=== PATIENT | male | born 1990 | race African-American/Black ===

== ENCOUNTER 2019-10-01 17:47 | Emergency (ER) | payer OTHER ==
[2019-10-01 18:34] LABS: Absolute Lymphocytes (CBC) 1.4 K/uL (0.7-4.9); Basophils % 0.5 % (0-1.3); Hematocrit 39.5 % (39.6-49.0); Lymphocytes % 27.8 % (15.3-44.8); MPV 8.4 fL (7.6-11.3); RBC Red Blood Cell Count 5.76 M/uL (4.33-5.43)
[2019-10-01 18:38] LABS: Protime INR 1.09
[2019-10-01 18:42] LABS: Barbiturates NEGATIVE (NEGATIVE); Benzodiazepines NEGATIVE (NEGATIVE); Cocaine NEGATIVE (NEGATIVE); METHAMPHETAM NEGATIVE (NEGATIVE); Methadone NEGATIVE (NEGATIVE); Opiates NEGATIVE (NEGATIVE); Phencyclidine NEGATIVE (NEGATIVE); THC Cannibis NEGATIVE (NEGATIVE)
[2019-10-01 18:58] LABS: ALT/SGPT 30 U/L (12-78); AST/SGOT 40 U/L (15-37); Albumin 3.9 g/dL (3.4-5.0); Alkaline Phosphatase 96 U/L (45-117); BUN Blood Urea Nitrogen 21 mg/dL (7-18); Bicarbonate 31 mmol/L (21-32); Bilirubin Direct < 0.1 mg/dL (0-0.2); Bilirubin Total 0.2 mg/dL (0.2-1.0); Glucose Level 89 mg/dL (74-106); Potassium 4.1 mmol/L (3.5-5.1); Sodium Level 143 mmol/L (136-145)
[2019-10-01 19:01] LABS: Blood Morphology Comment NOTED (NOT SEEN); Hypochromasia 1+; Platelet Estimate ADEQ; Urine White Blood Cell Casts OK
[2019-10-01 19:10] LABS: Urine Blood NEGATIVE (NEG); Urine Glucose NEGATIVE (NEG); Urine Protein NEGATIVE (NEG); Urine Specific Gravity 1.025 (1.005-1.030)
[2019-10-01] MEDS ORDERED: NA CHLORIDE 0.9% 1,000 ML ONE (22:31)
--- NOTE | 2019-10-02 00:30 | EDPHYS ---
Physician Documentation [facility] Name: Alexus Sanchez Age: 29 yrs Sex: Male : 1990 Arrival Date: 10/01/2019 Time: 17:52 Bed 20 Private MD: ED Physician Dallin Duvall HPI: 10/01 19:05 This 29 yrs old Black Male presents to ER via Law Enforcement with complaints of kb Overdose. 19:05 The patient presents to the emergency department after a known overdose, that was kb intentional. Context: Method: the patient has a confirmed or suspected ingestion, lisinopril, Time: 3 hour(s) ago. Associated signs and symptoms: The patient has no apparent associated signs or symptoms. Severity of symptoms: At their worst the symptoms were mild in the emergency department the symptoms are unchanged. The patient has not experienced similar symptoms in the past. The patient has not recently seen a physician. Pt reports he took 30 lisinopril 20mg today because "I was trippin." States he is in a cell by himself and it makes him go crazy sometimes. Denies suicidal ideations. States he was not trying to harm himself. Was seen by intermediate psychiatrist prior to arrival and will be going to see her again when he gets back to [facility].. Historical: - Allergies: 17:55 Risperdal; ss - Home Meds: 17:55 lisinopril 20 mg Oral tab 1 tab once daily [Active]; Zoloft 100 mg Oral tab 1 tab once ss daily [Active]; - PMHx: 17:55 Depression; Hypertension; ss - PSHx: 17:55 L upper arm; ss - Immunization history:: Adult Immunizations up to date. - Social history:: Smoking status: Patient/guardian denies using tobacco. - Ebola Screening: : Patient denies exposure to infectious person Patient denies travel to an Ebola-affected area in the 21 days before illness onset. ROS: 19:02 Constitutional: Negative for fever, chills, and weight loss, ENT: Negative for injury, kb pain, and discharge, Neck: Negative for injury, pain, and swelling, Cardiovascular: Negative for chest pain, palpitations, and edema, Respiratory: Negative for shortness of breath, cough, wheezing, and pleuritic chest pain, Abdomen/GI: Negative for abdominal pain, nausea, vomiting, diarrhea, and constipation, Back: Negative for injury and pain, MS/Extremity: Negative for injury and deformity, Skin: Negative for injury, rash, and discoloration, Neuro: Negative for headache, weakness, numbness, tingling, and seizure. Exam: 19:02 Constitutional: This is a well developed, well nourished patient who is awake, alert, kb and in no acute distress. Head/Face: Normocephalic, atraumatic. Neck: Trachea midline, no thyromegaly or masses palpated, and no cervical lymphadenopathy. Supple, full range of motion without nuchal rigidity, or vertebral point tenderness. No Meningismus. Chest/axilla: Normal chest wall appearance and motion. Nontender with no deformity. No lesions are appreciated. Cardiovascular: Regular rate and rhythm with a normal S1 and S2. No gallops, murmurs, or rubs. Normal PMI, no JVD. No pulse deficits. Respiratory: Lungs have equal breath sounds bilaterally, clear to auscultation and percussion. No rales, rhonchi or wheezes noted. No increased work of breathing, no retractions or nasal flaring. Abdomen/GI: Soft, non-tender, with normal bowel sounds. No distension or tympany. No guarding or rebound. No evidence of tenderness throughout. Back: No spinal tenderness. No costovertebral tenderness. Full range of motion. Skin: Warm, dry with normal turgor. Normal color with no rashes, no lesions, and no evidence of cellulitis. MS/ Extremity: Pulses equal, no cyanosis. Neurovascular intact. Full, normal range of motion. Neuro: Awake and alert, GCS 15, oriented to person, place, time, and situation. Cranial nerves II-XII grossly intact. Motor strength 5/5 in all extremities. Sensory grossly intact. Cerebellar exam normal. Normal gait. Psych: Awake, alert, with orientation to person, place and time. Behavior, mood, and affect are within normal limits. Vital Signs: 17:55 BP 118 / 80; Pulse 70; Resp 15; Temp 98.0(TE); Pulse Ox 100% on R/A; Weight 75.3 kg; ss Height 5 ft. 8 in. (172.72 cm); Pain 0/10; 18:41 BP 111 / 62; Pulse 73; Resp 16 S; Pulse Ox 100% on R/A; ca1 19:45 BP 107 / 53; Pulse 66; Resp 18; Pulse Ox 98% on R/A; wh 20:30 BP 96 / 54; Pulse 66; Resp 18; Pulse Ox 98% on R/A; wh 21:45 BP 96 / 52; Pulse 96; Resp 18; Pulse Ox 99% on R/A; wh 22:45 BP 97 / 51; Pulse 81; Resp 18; Pulse Ox 97% on R/A; wh 23:30 BP 92 / 58; Pulse 60; Resp 16; Pulse Ox 99% ; wh 12 00:45 BP 95 / 56; Pulse 55; Resp 18; Pulse Ox 100% on R/A; wh 10/01 17:55 Body Mass Index 25.24 (75.30 kg, 172.72 cm) ss MDM: 10/01 18:07 Patient medically screened. kb 19:02 Data reviewed: vital signs, nurses notes. Data interpreted: Pulse oximetry: on room air kb is 100 %. Interpretation: normal. 19:02 ED course: Poison control recommended observation for 6-8 hours. . kb 21:24 ED course: Pt sleeping, easily awakened. No signs of distress. . kb 21:46 Transition of care: After a detail discussion of the patient's case, care is kb transferred to Merry Hickey [facility]. 10/01 18:07 Order name: Acetaminophen; Complete Time: 19:01 kb 10/01 18:07 Order name: Basic Metabolic Panel; Complete Time: 19:01 kb 10/01 18:07 Order name: CBC with Diff; Complete Time: 19:08 kb 10/01 18:07 Order name: ETOH Level; Complete Time: 19:08 kb 10/01 18:07 Order name: Hepatic Function; Complete Time: 19:01 kb 10/01 18:07 Order name: PT-INR; Complete Time: 18:45 kb 10/01 18:07 Order name: Ptt, Activated; Complete Time: 18:45 kb 10/01 18:07 Order name: Salicylate; Complete Time: 19:15 kb 10/01 18:07 Order name: Urine Drug Screen; Complete Time: 18:45 kb 10/01 18:07 Order name: EKG; Complete Time: 18:08 kb 10/01 18:07 Order name: EKG - Nurse/Tech; Complete Time: 18:40 kb 10/01 18:33 Order name: Urine Dipstick--Ancillary (enter results); Complete Time: 19:15 em1 10/01 19:03 Order name: CBC Smear Scan; Complete Time: 19:08 EDWI 10/01 18:07 Order name: IV Saline Lock; Complete Time: 18:23 kb 10/01 18:07 Order name: Labs collected and sent; Complete Time: 18:23 kb 10/01 18:07 Order name: Urine Dipstick-Ancillary (obtain specimen); Complete Time: 18:32 kb Administered Medications: 22:30 Drug: NS 0.9% 1000 ml Route: IV; Rate: 1 bolus; Site: right antecubital; 10/02 00:46 Follow up: Response: No adverse reaction; IV Status: Completed infusion Disposition: 10/02/19 00:29 Discharged to Home. Impression: Pt's intentional overdosing of medication regimen - lisinopril, nontoxic ingestion. - Condition is Stable. - Discharge Instructions: Hypotension, Nontoxic Ingestion, Persistent Depressive Disorder. - Medication Reconciliation Form, Thank You Letter, Antibiotic Education, Prescription Opioid Use form. - Follow up: Emergency Department; When: As needed; Reason: Worsening of condition. Follow up: Private Physician; When: 2 - 3 days; Reason: Recheck today's complaints, Continuance of care, Re-evaluation by your physician. Addendum: 10/05/2019 07:27 Co-signature as Attending Physician, Dallin Duvall MD. r n Signatures: Dispatcher [employer] [facility] Ana Maria Jones, INSPECTOR AUTOMATIC TYPEWRITER-C INSPECTOR AUTOMATIC TYPEWRITER-Ckb Merry Hickey, DAWSONC INSPECTOR AUTOMATIC TYPEWRITER-Csnw Dallin Duvall MD MD rn Smirch, Shelby, RN RN ss Habalo, Winsy Corrections: (The following items were deleted from the chart) 10/02 01:29 00:29 10/02/2019 00:29 Discharged to Home. Impression: Pt's intentional overdosing of medication regimen - lisinopril; nontoxic ingestion. Condition is Stable. Forms are Medication Reconciliation Form, Thank You Letter, Antibiotic Education, Prescription Opioid Use. Follow up: Emergency Department; When: As needed; Reason: Worsening of condition. Follow up: Private Physician; When: 2 - 3 days; Reason: Recheck today's complaints, Continuance of care, Re-evaluation by your physician. snw
--- NOTE | 2019-10-02 00:30 | ER ---
Nurse's Notes [facility] Name: Alexus Sanchez Age: 29 yrs Sex: Male : 1990 Arrival Date: 10/01/2019 Time: 17:52 Bed 20 Private MD: Diagnosis: Pt's intentional overdosing of medication regimen - lisinopril;nontoxic ingestion Presentation: 10/01 17:52 Presenting complaint: Patient states: "I took 30 Lisinopril tablets (20 mg) about an ss hour ago. I didn't do it to hurt myself, I just don't know why I did it, I'm about to get out and go home.". Transition of care: [facility]. Onset of symptoms was October 01, 2019. Risk Assessment: Do you want to hurt yourself or someone else? Patient reports no desire to harm self or others. Initial Sepsis Screen: Does the patient meet any 2 criteria? No. Patient's initial sepsis screen is negative. Does the patient have a suspected source of infection? No. Patient's initial sepsis screen is negative. Care prior to arrival: None. 17:52 Method Of Arrival: Law Enforcement: [place] [employer] 17:52 Acuity: MARTY 2 ss Historical: - Allergies: 17:55 Risperdal; ss - Home Meds: 17:55 lisinopril 20 mg Oral tab 1 tab once daily [Active]; Zoloft 100 mg Oral tab 1 tab once ss daily [Active]; - PMHx: 17:55 Depression; Hypertension; ss - PSHx: 17:55 L upper arm; ss - Immunization history:: Adult Immunizations up to date. - Social history:: Smoking status: Patient/guardian denies using tobacco. - Ebola Screening: : Patient denies exposure to infectious person Patient denies travel to an Ebola-affected area in the 21 days before illness onset. Screenin:08 Abuse screen: Denies threats or abuse. Denies injuries from another. Nutritional ca1 screening: No deficits noted. Tuberculosis screening: No symptoms or risk factors identified. Fall Risk None identified. Assessment: 18:03 Reassessment: Spoke with [facility] RepBrian who recommends to Not give ss charcoal at this time as ingestion has been greater than 1 hour. Monitor for hypotension, hypokalemia and/or bradycardia. Obtain Toxic workup, continuous cardiac monitoring. Monitor patient for at least 6-8 hours. If symptomatic, admit patient for further monitoring. Pt has no complaints at this time. Denies SI/HI. 18:08 General: Appears in no apparent distress. comfortable, Behavior is calm, cooperative, ca1 appropriate for age. Pain: Denies pain. Neuro: Level of Consciousness is awake, alert, obeys commands, Oriented to person, place, time, situation, Appropriate for age. Cardiovascular: Heart tones S1 S2 present Capillary refill < 3 seconds Patient's skin is warm and dry. Respiratory: Airway is patent Respiratory effort is even, unlabored, Respiratory pattern is regular, symmetrical, Breath sounds are clear bilaterally. GI: Abdomen is flat, non-distended, Bowel sounds present X 4 quads. Abd is soft and non tender X 4 quads. : No deficits noted. No signs and/or symptoms were reported regarding the genitourinary system. EENT: No deficits noted. No signs and/or symptoms were reported regarding the EENT system. Derm: Skin is intact, is healthy with good turgor, Skin is pink, warm \\T\\ dry. Musculoskeletal: Circulation, motion, and sensation intact. Capillary refill < 3 seconds, Range of motion: intact in all extremities. 18:11 Reassessment: COs at bedside. ca1 19:30 Reassessment: Patient appears in no apparent distress at this time. Patient and/or family updated on plan of care and expected duration. Pain level reassessed. Patient is alert, oriented x 3, equal unlabored respirations, skin warm/dry/pink. 20:35 Reassessment: Patient appears in no apparent distress at this time. No changes from previously documented assessment. Patient and/or family updated on plan of care and expected duration. Pain level reassessed. Patient is alert, oriented x 3, equal unlabored respirations, skin warm/dry/pink. Patient denies pain at this time. 21:47 Reassessment: Patient appears in no apparent distress at this time. No changes from previously documented assessment. Patient and/or family updated on plan of care and expected duration. Pain level reassessed. Patient is alert, oriented x 3, equal unlabored respirations, skin warm/dry/pink. Pt sleeping well no signs of distress noted Patient denies pain at this time. 22:40 Reassessment: Patient appears in no apparent distress at this time. No changes from previously documented assessment. Patient and/or family updated on plan of care and expected duration. Pain level reassessed. Patient is alert, oriented x 3, equal unlabored respirations, skin warm/dry/pink. TCF Chimmy Poison COntrol with suggestion of Iv fluids to keep BP WNL, notified Provider Patient denies pain at this time. 23:30 Reassessment: Patient appears in no apparent distress at this time. No changes from previously documented assessment. Patient and/or family updated on plan of care and expected duration. Pain level reassessed. Patient is alert, oriented x 3, equal unlabored respirations, skin warm/dry/pink. Pt sleeping well no signs of distress noted. 10/02 00:46 Reassessment: Patient appears in no apparent distress at this time. No changes from previously documented assessment. Patient and/or family updated on plan of care and expected duration. Pain level reassessed. Patient is alert, oriented x 3, equal unlabored respirations, skin warm/dry/pink. Patient denies pain at this time. Vital Signs: 10/01 17:55 BP 118 / 80; Pulse 70; Resp 15; Temp 98.0(TE); Pulse Ox 100% on R/A; Weight 75.3 kg; Height 5 ft. 8 in. (172.72 cm); Pain 0/10; 18:41 BP 111 / 62; Pulse 73; Resp 16 S; Pulse Ox 100% on R/A; ca1 19:45 BP 107 / 53; Pulse 66; Resp 18; Pulse Ox 98% on R/A; wh 20:30 BP 96 / 54; Pulse 66; Resp 18; Pulse Ox 98% on R/A; wh 21:45 BP 96 / 52; Pulse 96; Resp 18; Pulse Ox 99% on R/A; wh 22:45 BP 97 / 51; Pulse 81; Resp 18; Pulse Ox 97% on R/A; wh 23:30 BP 92 / 58; Pulse 60; Resp 16; Pulse Ox 99% ; wh 10/02 00:45 BP 95 / 56; Pulse 55; Resp 18; Pulse Ox 100% on R/A; 10/01 17:55 Body Mass Index 25.24 (75.30 kg, 172.72 cm) ED Course: 12 17:52 Patient arrived in ED. ss 17:54 Triage completed. ss 17:55 Arm band placed on right wrist. ss 18:06 Kitty Sanchez, RN is Primary Nurse. ca1 18:07 Ana Maria Jones FNP-C is PHCP. kb 18:07 Dallin Duvall MD is Attending Physician. kb 18:08 Patient has correct armband on for positive identification. Bed in low position. Call ca1 light in reach. Side rails up X 1. Pulse ox on. NIBP on. Warm blanket given. 18:08 No provider procedures requiring assistance completed. ca1 18:15 Initial lab(s) drawn, by pr, sent to lab. Urine collected: clean catch specimen, clear, ca1 Amount Voided: 90mL. Inserted saline lock: 18 gauge in right antecubital area, using aseptic technique. Blood collected. 21:38 PHCP role handed off by Ana Maria Jones FNP-C sn 21:38 Merry Hickey FNP-C is PHCP. [facility] 10/02 00:49 IV discontinued, intact, bleeding controlled, No redness/swelling at site. Administered Medications: 12 22:30 Drug: NS 0.9% 1000 ml Route: IV; Rate: 1 bolus; Site: right antecubital; 10/02 00:46 Follow up: Response: No adverse reaction; IV Status: Completed infusion Outcome: 00:29 Discharge ordered by . snw 00:49 Discharged to Law Enforcement 00:49 Condition: stable 00:49 Discharge instructions given to patient, police, Instructed on discharge instructions, follow up and referral plans. POC Demonstrated understanding of instructions, follow-up care, POC 01:29 Patient left the ED. Signatures: Ana Maria Jones FNP-C FNP-Ckb Merry Hickey FNP-C FNP-Csnw Alyse Tapia RN RN Mally Poon Kitty Sanchez RN RN ca1
[2019-10-02 03:29] VITALS: TEMP 98
[2019-10-02 03:39] VITALS: BP 95/56; O2SAT 100
--- NOTE | 2019-10-02 07:02 | EKG ---
Test Date: 2019-10-01 Test Time: 18:32:38 Coal Chute Worker: KAYLAH MEASUREMENT RESULTS: Intervals: Rate: 63 KS: 174 QRSD: 86 QT: 406 QTc: 415 Wray: P: 22 KS: 174 QRS: 66 T: 60 INTERPRETIVE STATEMENTS: Normal sinus rhythm Normal ECG No previous ECG available for comparison Electronically Signed On 10-02-19 07:01:23 PROCESS LABORATORY SPECIALIST by Glenn Martinez
== END 2019-10-02 01:29 | disposition home or self-care (01) ==
LOC: ER 17:47
DX: T46.4X2A Poisoning by angiotensin-converting-enzyme inhibitors, intentional self-harm, initial encounter (principal); Y92.143 Cell of prison as the place of occurrence of the external cause; I10 Essential (primary) hypertension; F32.9 Major depressive disorder, single episode, unspecified; Z88.8 Allergy status to other drugs, medicaments and biological substances
CPT/HCPCS: 36415; 80048; 80076; 80307; 80320; 80329; 81003; 85025; 85610; 85730; 93005; 96360; 96361; 99284; J7030

== ENCOUNTER 2020-01-25 17:17 | Emergency (ER) | payer OTHER ==
[2020-01-25 18:02] LABS: Absolute Lymphocytes (CBC) 1.2 K/uL (0.7-4.9); Basophils % 0.4 % (0-1.3); Hematocrit 40.5 % (39.6-49.0); Lymphocytes % 19.1 % (15.3-44.8); MPV 8.7 fL (7.6-11.3); RBC Red Blood Cell Count 5.89 M/uL (4.33-5.43)
[2020-01-25 18:09] LABS: Protime INR 1.08
[2020-01-25 18:15] LABS: Barbiturates NEGATIVE (NEGATIVE); Benzodiazepines NEGATIVE (NEGATIVE); Cocaine NEGATIVE (NEGATIVE); METHAMPHETAM NEGATIVE (NEGATIVE); Methadone NEGATIVE (NEGATIVE); Opiates NEGATIVE (NEGATIVE); Phencyclidine NEGATIVE (NEGATIVE); THC Cannibis NEGATIVE (NEGATIVE)
[2020-01-25 18:30] LABS: ALT/SGPT 18 U/L (12-78); AST/SGOT 18 U/L (15-37); Albumin 4.1 g/dL (3.4-5.0); Alkaline Phosphatase 73 U/L (45-117); BUN Blood Urea Nitrogen 17 mg/dL (7-18); Bicarbonate 29 mmol/L (21-32); Bilirubin Direct < 0.1 mg/dL (0-0.2); Bilirubin Total 0.2 mg/dL (0.2-1.0); Glucose Level 91 mg/dL (74-106); Potassium 4.6 mmol/L (3.5-5.1); Protein, Total 7.2 g/dL (6.4-8.2); Sodium Level 142 mmol/L (136-145)
[2020-01-25 19:20] LABS: Urine Blood NEGATIVE (NEG); Urine Glucose NEGATIVE (NEG); Urine Protein NEGATIVE (NEG); Urine Specific Gravity >1.030 (1.005-1.030)
[2020-01-25 19:23] LABS: Anisocytosis 1+; Blood Morphology Comment NOTED (NOT SEEN); Platelet Estimate ADEQ; Poikilocytosis 2+; Urine White Blood Cell Casts OK
--- NOTE | 2020-01-25 20:52 | ER ---
Nurse's Notes [facility] Name: Alexus Sanchez Age: 29 yrs Sex: Male : 1990 Arrival Date: 01/25/2020 Time: 17:19 Bed 3 Private MD: Diagnosis: Poisoning by other drugs, medicaments and biological substances, intentional self-harm Presentation: 01/24 17:19 Chief complaint: EMS states: pt took 25 pills of Lisinopril 20 mg tabs at 1530, sv unwitnessed with the intent to kill himself. Pt was attempting to hang himself but the halfway guards pepper sprayed himself before he could even wrap anything around himself. BP 109/73 SR 20G R AC. Pt denies SOB/dizziness/fever/chills. Poison control was called by EMS. Pt from [facility]. Coronavirus screen: Patient denies fever greater than 100.4F, cough, shortness of breath, or difficulty breathing. Proceed with normal triage process. Ebola Screen: Patient negative for fever greater than or equal to 101.5 degrees Fahrenheit, and additional compatible Ebola Virus Disease symptoms Patient denies exposure to infectious person. Patient denies travel to an Ebola-affected area in the 21 days before illness onset. No symptoms or risks identified at this time. Initial Sepsis Screen: Does the patient meet any 2 criteria? No. Patient's initial sepsis screen is negative. Does the patient have a suspected source of infection? No. Patient's initial sepsis screen is negative. Risk Assessment: Do you want to hurt yourself or someone else? Patient reports desire/thoughts of hurting themselves or someone else. Provider notified. 17:19 Method Of Arrival: EMS: [facility] sv 17:19 Acuity: MARTY 2 sv 17:31 Onset of symptoms was January 25, 2020 at 15:30. sv Triage Assessment: 17:20 General: Appears in no apparent distress. comfortable, well groomed, well developed, sv Behavior is calm, cooperative, appropriate for age, Pt telling jokes to staff.. Pain: Denies pain. Neuro: Level of Consciousness is awake, alert, obeys commands, Oriented to person, place, time, situation, Moves all extremities. Full function. Cardiovascular: Patient's skin is warm and dry. Rhythm is sinus rhythm. Respiratory: Airway is patent Respiratory effort is even, unlabored, Respiratory pattern is regular, symmetrical. Derm: Skin is intact, Skin is pink, warm \T\ dry. Musculoskeletal: Range of motion: intact in all extremities. Historical: - Allergies: 17:25 Risperdal; sv - Home Meds: 17:25 lisinopril 20 mg Oral tab 1 tab once daily [Active]; aripiprazole 15 mg oral tab 1 tab sv once daily [Active]; - PMHx: 17:25 Depression; Hypertension; sv - PSHx: 17:25 L upper arm; sv - Immunization history:: Adult Immunizations up to date. - Social history:: Smoking status: Patient denies any tobacco usage or history of. Patient/guardian denies using alcohol, street drugs, Patient/guardian denies using The patient lives with family. - Family history:: not pertinent. Screenin:30 Abuse screen: Denies threats or abuse. Denies injuries from another. Nutritional sv screening: No deficits noted. Tuberculosis screening: No symptoms or risk factors identified. Fall Risk None identified. Assessment: 17:46 Reassessment: Poison control called by myself. Case # [id number]. Stated to watch for sv hypotension. 18:02 Reassessment: Patient appears in no apparent distress at this time. No changes from sv previously documented assessment. Patient and/or family updated on plan of care and expected duration. Pain level reassessed. Patient is alert, oriented x 3, equal unlabored respirations, skin warm/dry/pink. 18:29 Reassessment: Patient appears in no apparent distress at this time. No changes from sv previously documented assessment. Patient and/or family updated on plan of care and expected duration. Pain level reassessed. Patient is alert, oriented x 3, equal unlabored respirations, skin warm/dry/pink. Pt talking and joking with the halfway guards. 19:16 Reassessment: PATIENT AT THIS TIME DENIES PAIN, NO SIGNS OF DISTRESS AT THIS TIME, lw1 LAUGHING AND JOKING WITH GUARDS, BEHAVIOR IS APPROPRIATE. 19:33 Reassessment: CALLED POISON CONTROL FOR UPDATE ROCKET MOTOR TESTER ADVISED TO WATCH PATIENT lw1 FOR 6 HOURS FROM INGESTION, IF EVERYTHING IS STABLE MAY DISCHARGE BACK UNIT AND HAVE PSYCH CONSULT. MD UPDATED. 19:48 Reassessment: PATIENT WAS GIVEN SANDWICH AND JUICE. PATIENT DENIES PAIN OR DISCOMFORT, lw1 NO SIGNS OF DISTRESS NOTED. GUARDS X 2 AT BEDSIDE. 20:13 Reassessment:. lw1 21:27 Reassessment: WAITING FOR TRANSPORTATION FOR PATIENT. lw1 Psych: 17:27 Subjective: Patient's mood is elevated, Delusions are denied, Hallucinations are denied sv Having thoughts of suicide. Plan for suicide is to take the pills he's been saving of Lisinopril. Objective: Patient is cooperative, Speech is normal, Affect is appropriate. Interventions: Removed personal items and placed in bag. Searched person for dangerous items. Patient reassessed during use of restraints. Patient is physically safe. Patient's cardiac status is stable. Patient's respirations are even and unlabored. Patient has good circulation in all extremities as indicated by capillary refill < 3 seconds. Patient's ROM assessed and is intact. Patient nutrition and hydration needs will continue to be monitored and addressed. Patient hygiene and elimination needs met. Patient assessed for signs of distress. Patient remains reasonably comfortable at this time. Suicide Risk Assessment: Sad Person Scale: Sex of patient: Male: Score 1 point. Age of patient: Score 1 point if patient 15-34. Depression: Score 1 point if signs of depression are present. Previous Attempt: Score 1 point if patient has previously attempted suicide. Substance Abuse: Score 0 point if patient does not abuse alcohol or drugs. Rational Thinking: Score 0 point if patient has rational thinking. Social Support: Score 1 point if social support is lacking and/or unavailable. Organized Plan: Score 1 point if patient had a plan in place. Relationship: Score 1 point if patient is , , , or for a single male Chronic Sickness: Score 1 point if patient has illness, chronic, debilitating, or severe. TOTAL POINTS: If total points are 7-10, the proposed clinical action is to hospitalize or commit. Implement suicide precautions. Safety Checks: Personal items have been removed. Door is open. Visitors are present. 2 halfway guards at bedside. Pt denies substance abuse. 21:24 Commitment: WILL FOLLOW UP WITH PSYCH AT [facility]. lw1 Overdose: 17:26 Patient took Lisinopril 20 mg, 25 tabs. Overdose occurred 1-2 hours ago. sv Vital Signs: 17:19 BP 106 / 77; Pulse 64; Resp 13; Temp 98.5; Pulse Ox 100% ; Weight 73.94 kg; Height 5 sv ft. 8 in. (172.72 cm); Pain 0/10; 17:48 BP 111 / 99; Pulse 82; Resp 16; Pulse Ox 100% ; sv 18:15 BP 102 / 66; Pulse 63; Resp 17; Pulse Ox 100% ; sv 18:45 BP 111 / 83; Pulse 73; Resp 15; Pulse Ox 100% ; sv 19:06 BP 112 / 66; Pulse 62; Resp 16; Pulse Ox 100% on R/A; lw1 19:33 BP 123 / 69; Pulse 71; Resp 15; Pulse Ox 100% on R/A; lw1 20:00 BP 122 / 92; Pulse 76; Resp 19; Pulse Ox 100% on R/A; lw1 20:11 BP 117 / 77; Pulse 73; Resp 16; Pulse Ox 97% on R/A; lw1 20:30 BP 136 / 77; Pulse 68; Resp 16; Pulse Ox 99% on R/A; Pain 0/10; lw1 21:00 BP 125 / 84; Pulse 79; Resp 20; Pulse Ox 100% on NC; Pain 0/10; lw1 17:19 Body Mass Index 24.78 (73.94 kg, 172.72 cm) sv ED Course: 17:19 Patient arrived in ED. sv 17:19 Nichelle Jonas, NITZA is Primary Nurse. sv 17:19 Aurelia Elizabeth MD is Attending Physician. ma2 17:20 proposal analyst on. Pulse ox on. NIBP on. sv 17:20 Maintain EMS IV. Dressing intact. Site clean \T\ dry. Gauge \T\ site: 20G R AC. sv 17:24 Triage completed. sv 17:25 Arm band placed on Patient placed in an exam room, on a stretcher, on two way radio technician, sv on pulse oximetry. 17:30 Patient has correct armband on for positive identification. Bed in low position. Call sv light in reach. Side rails up X2. 2 halfway guards at the bedside. 17:45 Initial lab(s) drawn, by me, by EMS personnel. Inserted saline lock: 20 gauge in left ca1 antecubital area, using aseptic technique. Blood collected. 17:47 EKG done, by ED staff, reviewed by Aurelia Elizabeth MD. sv 17:48 Acetaminophen Sent. sv 17:48 Basic Metabolic Panel Sent. sv 18:01 Urine Dipstick--Ancillary (enter results) Sent. sv 18:06 CBC Smear Scan Sent. sv 18:29 Awaiting lab results. sv 18:56 Primary Nurse role handed off by Nichelle Jonas, NITZA 19:16 Norma Ta, RN is Primary Nurse. lw1 21:24 No provider procedures requiring assistance completed. IV discontinued, intact, lw1 bleeding controlled, No redness/swelling at site. Pressure dressing applied, X 2. Administered Medications: No medications were administered Outcome: 20:51 Discharge ordered by . zakia 21:25 Discharged to Law Enforcement lw1 21:25 Condition: stable 21:25 Discharge instructions given to patient, Instructed on discharge instructions, follow up and referral plans. Demonstrated understanding of instructions, follow-up care. 21:54 Patient left the ED. mw2 Signatures: Nichelle Jonas RN RN sv Alzahri, Mohammad, MD MD sc2 Bunny Peter mw2 Kitty Sanchez RN RN [facility] Norma Ta RN RN lw1 Corrections: (The following items were deleted from the chart) 17:26 17:19 Chief complaint: EMS states: pt took 25 pills of Lisinopril 20 mg tabs at 1530, sv unwitnessed with the intent to kill himself. Pt was attempting to hang himself but the halfway guards pepper sprayed himself before he could even wrap anything around himself. BP 109/73 SR 20G R AC. Pt denies SOB/dizziness/fever/chills. sv 17:31 17:19 Chief complaint: EMS states: pt took 25 pills of Lisinopril 20 mg tabs at 1530, sv unwitnessed with the intent to kill himself. Pt was attempting to hang himself but the halfway guards pepper sprayed himself before he could even wrap anything around himself. BP 109/73 SR 20G R AC. Pt denies SOB/dizziness/fever/chills. Poison control was called by EMS. sv 17:47 17:46 Reassessment: Poison control called by myself. Case # [id number]. [facility]
--- NOTE | 2020-01-25 20:52 | EDPHYS ---
Physician Documentation [facility] Name: Alexus Sanchez Age: 29 yrs Sex: Male : 1990 Arrival Date: 01/25/2020 Time: 17:19 Bed 3 Private MD: ED Physician Aurelia Elizabeth HPI: 01/24 17:31 This 29 yrs old Black Male presents to ER via EMS with complaints of Overdose. ma2 17:31 The patient presents to the emergency department took 20 pills of 25 lisinopril an hour ma2 ago states he is suicidal . Severity of symptoms: At their worst the symptoms were mild in the emergency department the symptoms are unchanged. The patient has not experienced similar symptoms in the past. Historical: - Allergies: 17:25 Risperdal; sv - Home Meds: 17:25 lisinopril 20 mg Oral tab 1 tab once daily [Active]; aripiprazole 15 mg oral tab 1 tab sv once daily [Active]; - PMHx: 17:25 Depression; Hypertension; sv - PSHx: 17:25 L upper arm; sv - Immunization history:: Adult Immunizations up to date. - Social history:: Smoking status: Patient denies any tobacco usage or history of. Patient/guardian denies using alcohol, street drugs, Patient/guardian denies using The patient lives with family. - Family history:: not pertinent. ROS: 17:31 Constitutional: Negative for fever, chills, and weight loss. ma2 17:31 All other systems are negative. Exam: 17:31 Constitutional: This is a well developed, well nourished patient who is awake, alert, ma2 and in no acute distress. Head/Face: Normocephalic, atraumatic. Eyes: Pupils equal round and reactive to light, extra-ocular motions intact. Lids and lashes normal. Conjunctiva and sclera are non-icteric and not injected. Cornea within normal limits. Periorbital areas with no swelling, redness, or edema. ENT: Nares patent. No nasal discharge, no septal abnormalities noted. Tympanic membranes are normal and external auditory canals are clear. Oropharynx with no redness, swelling, or masses, exudates, or evidence of obstruction, uvula midline. Mucous membranes moist. Neck: Trachea midline, no thyromegaly or masses palpated, and no cervical lymphadenopathy. Supple, full range of motion without nuchal rigidity, or vertebral point tenderness. No Meningismus. Chest/axilla: Normal chest wall appearance and motion. Nontender with no deformity. No lesions are appreciated. Cardiovascular: Regular rate and rhythm with a normal S1 and S2. No gallops, murmurs, or rubs. Normal PMI, no JVD. No pulse deficits. Respiratory: Lungs have equal breath sounds bilaterally, clear to auscultation and percussion. No rales, rhonchi or wheezes noted. No increased work of breathing, no retractions or nasal flaring. Abdomen/GI: Soft, non-tender, with normal bowel sounds. No distension or tympany. No guarding or rebound. No evidence of tenderness throughout. Back: No spinal tenderness. No costovertebral tenderness. Full range of motion. MS/ Extremity: Pulses equal, no cyanosis. Neurovascular intact. Full, normal range of motion. Neuro: Awake and alert, GCS 15, oriented to person, place, time, and situation. Cranial nerves II-XII grossly intact. Motor strength 5/5 in all extremities. Sensory grossly intact. Cerebellar exam normal. Normal gait. Vital Signs: 17:19 BP 106 / 77; Pulse 64; Resp 13; Temp 98.5; Pulse Ox 100% ; Weight 73.94 kg; Height 5 sv ft. 8 in. (172.72 cm); Pain 0/10; 17:48 BP 111 / 99; Pulse 82; Resp 16; Pulse Ox 100% ; sv 18:15 BP 102 / 66; Pulse 63; Resp 17; Pulse Ox 100% ; sv 18:45 BP 111 / 83; Pulse 73; Resp 15; Pulse Ox 100% ; sv 19:06 BP 112 / 66; Pulse 62; Resp 16; Pulse Ox 100% on R/A; lw1 19:33 BP 123 / 69; Pulse 71; Resp 15; Pulse Ox 100% on R/A; lw1 20:00 BP 122 / 92; Pulse 76; Resp 19; Pulse Ox 100% on R/A; lw1 20:11 BP 117 / 77; Pulse 73; Resp 16; Pulse Ox 97% on R/A; lw1 20:30 BP 136 / 77; Pulse 68; Resp 16; Pulse Ox 99% on R/A; Pain 0/10; lw1 21:00 BP 125 / 84; Pulse 79; Resp 20; Pulse Ox 100% on NC; Pain 0/10; lw1 17:19 Body Mass Index 24.78 (73.94 kg, 172.72 cm) sv MDM: 17:19 Patient medically screened. ma2 17:31 Differential diagnosis: polypharmacy, over medication, hypoglycemia. Data reviewed: [facility] vital signs, nurses notes. Counseling: I had a detailed discussion with the patient and/or guardian regarding: the historical points, exam findings, and any diagnostic results supporting the discharge/admit diagnosis, the presence of at least one elevated blood pressure reading (>120/80) during this emergency department visit, the need for outpatient follow up. Response to treatment: the patient's symptoms have markedly improved after treatment. 20:49 ED course: needs psych evaluation and that is availabel at the long-term . [facility] 01/24 17:19 Order name: Acetaminophen [facility] 01/24 17:19 Order name: Basic Metabolic Panel [facility] 01/24 17:19 Order name: CBC with Diff; Complete Time: 19:37 nc2 01/24 17:19 Order name: ETOH Level; Complete Time: 19:17 nc2 01/24 17:19 Order name: Hepatic Function; Complete Time: 18:40 nc2 01/24 17:19 Order name: PT-INR; Complete Time: 18:40 nc2 01/24 17:19 Order name: Ptt, Activated; Complete Time: 18:40 nc2 01/24 17:19 Order name: Salicylate; Complete Time: 19:17 nc2 01/24 17:19 Order name: Urine Drug Screen; Complete Time: 18:40 ma2 01/24 17:19 Order name: EKG; Complete Time: 17:21 ma2 01/24 17:21 Order name: Acetaminophen Level; Complete Time: 18:40 EDMS 01/24 17:21 Order name: Basic Metabolic Panel; Complete Time: 18:40 EDMS 01/24 17:59 Order name: Urine Dipstick--Ancillary (enter results); Complete Time: 19:37 bd 01/24 18:06 Order name: CBC Smear Scan; Complete Time: 19:37 EDMS 01/24 17:19 Order name: EKG - Nurse/Tech; Complete Time: 17:48 ma2 01/24 17:19 Order name: IV Saline Lock; Complete Time: 17:33 ma2 01/24 17:19 Order name: Labs collected and sent; Complete Time: 17:48 ma2 01/24 17:19 Order name: Urine Dipstick-Ancillary (obtain specimen); Complete Time: 17:57 ma2 Administered Medications: No medications were administered Disposition: 01/25/20 20:51 Discharged to Home. Impression: Poisoning by other drugs, medicaments and biological substances, intentional self-harm. - Condition is Stable. - Discharge Instructions: Suicidal Feelings: How to Help Yourself, Drug Overdose. - Medication Reconciliation Form, Thank You Letter, Antibiotic Education, Prescription Opioid Use form. - Follow up: Private Physician; When: Tomorrow; Reason: Continuance of care. Signatures: Dispatcher [employer] Nichelle Manning RN RN sv Alzahri, Mohammad, MD MD ma2 Bunny Peter mw2 Corrections: (The following items were deleted from the chart) 21:54 20:51 01/25/2020 20:51 Discharged to Home. Impression: Poisoning by other drugs, mw2 medicaments and biological substances, intentional self-harm. Condition is Stable. Forms are Medication Reconciliation Form, Thank You Letter, Antibiotic Education, Prescription Opioid Use. Follow up: Private Physician; When: Tomorrow; Reason: Continuance of care. ma2
[2020-01-25 22:15] VITALS: TEMP 98.5
[2020-01-25 22:29] VITALS: BP 125/84; O2SAT 100
--- NOTE | 2020-01-26 05:24 | EKG ---
Test Date: 2020-01-25 Test Time: 17:48:20 Manager Front Office: REN MEASUREMENT RESULTS: Intervals: Rate: 64 VT: 178 QRSD: 88 QT: 386 QTc: 398 [place]: P: 29 VT: 178 QRS: 67 T: 60 INTERPRETIVE STATEMENTS: Undetermined rhythm Otherwise normal ECG Compared to ECG 10/01/2019 18:32:38 Sinus rhythm no longer present Electronically Signed On 01-26-20 05:23:41 CDT by iMchael Palmer
== END 2020-01-25 21:54 | disposition home or self-care (01) ==
LOC: ER 17:17
DX: T46.4X2A Poisoning by angiotensin-converting-enzyme inhibitors, intentional self-harm, initial encounter (principal); Y92.149 Unspecified place in prison as the place of occurrence of the external cause; F32.9 Major depressive disorder, single episode, unspecified; I10 Essential (primary) hypertension; Z91.048 Other nonmedicinal substance allergy status
CPT/HCPCS: 36415; 80048; 80076; 80307; 80320; 80329; 81003; 85025; 85610; 85730; 93005; 99285